=== PATIENT | male | born 1980 | race Hispanic/Latino ===

== ENCOUNTER 2021-02-20 14:12 | Day surgery (SDC) | payer BC, SELFPAY ==
[2021-02-20] MEDS ORDERED: Fentanyl 100 MCG/2 ML VIAL ONE ×2 (14:23→15:13)
[2021-02-20] MEDS ORDERED: Bupivacaine 0.25% HCL 30 ML VIAL ONE (14:44)
[2021-02-20] MEDS ORDERED: Lidocaine 2% w/Epinephrine 1:200K 20 ML VIAL ONE (14:44)
[2021-02-20] MEDS ORDERED: PROPOFOL 200 MG/20 ML VIAL ONE (14:59)
[2021-02-20] MEDS ORDERED: Lidocaine 1% PF 5 ML VIAL ONE (14:59)
[2021-02-20] MEDS ORDERED: Rocuronium Bromide 10 MG/ML (10ML VIAL) ONE (14:59)
[2021-02-20] MEDS ORDERED: Glycopyrrolate 0.2 MG/ML 5 ML SYRINGE ONE (14:59)
[2021-02-20] MEDS ORDERED: Dexamethasone 20 MG/5 ML VIAL ONE (14:59)
[2021-02-20] MEDS ORDERED: Ondansetron PF 4 MG/2 ML Vial ONE (14:59)
[2021-02-20] MEDS ORDERED: Ketorolac Tromethamine 30 MG/ML VIAL ONE (16:11)
[2021-02-20] MEDS ORDERED: Promethazine HCl 25 MG/ML VIAL ONE (16:26)
== END 2021-02-20 17:15 | disposition home or self-care (01) ==
LOC: SDC 14:12
PROVIDERS: ATTEND Surgery
PROC: 0DTJ4ZZ Resection of Appendix, Percutaneous Endoscopic Approach (ICD-10-PCS; principal; 2021-02-20)
DX: K35.32 Acute appendicitis with perforation, localized peritonitis, and gangrene, without abscess (principal)
CPT/HCPCS: 88304; J1100; J1885; J2405; J2550; J2704; J3010; S0020